=== PATIENT | male | born 1950 | race Caucasian/White ===

== ENCOUNTER → 2017-03-09 | Outpatient (CLI) | payer OTHER ==
[~2017-03-09] MED LIST: ASPI81TA28 PO; ATOR-26 PO; FLV1 PO; GEMF600T3 PO; LISI-461 PO; METO50TA16 PO; SILD100T PO; URX/10 PO
[2017-03-09 13:33] LABS: ESTIMATED AVERAGE GLUCOSE 134 mg/dl; HA1C FLAG Normal (Normal)
[2017-03-09 13:43] LABS: ALT/SGPT 24 U/L (12-78); BLOOD UREA NITROGEN 27 mg/dl (7-18); BUN/CREATININE RATIO 16.9 (10-20); CALCIUM 9.4 mg/dl (8.5-10.1); CARBON DIOXIDE 23 mmol/L (21-32); CHLORIDE 105 mmol/L (98-107); CHOLESTEROL 287 mg/dl (0-200); CREATININE 1.57 mg/dl (0.60-1.40); GLUCOSE 139 mg/dl (70-99); SODIUM 136 mmol/L (136-145); TRIGLYCERIDES 183 mg/dl (0-150); VERY LOW DENSITY LIPOPROT CALC 37 mg/dl
[2017-03-09 13:46] LABS: ALB/GLOB RATIO 1.2 (0.9-2); ALKALINE PHOSPHATASE 90 U/L (45-117); AST/SGOT 22 U/L (15-37); CHOLESTEROL/HDL RATIO 6.2; HDL CHOLESTEROL 46 mg/dl; LDL CHOLESTEROL CALCULATED 204 mg/dl
== END | disposition home or self-care (01) ==
LOC: C.LABPVFM 07:33
PROVIDERS: ATTEND Family Medicine
DX: Z11.59 Encounter for screening for other viral diseases (principal); I25.10 Atherosclerotic heart disease of native coronary artery without angina pectoris; E78.1 Pure hyperglyceridemia; R73.01 Impaired fasting glucose; I10 Essential (primary) hypertension

== ENCOUNTER → 2017-08-25 | Outpatient (CLI) | payer OTHER ==
[2017-08-25 13:50] LABS: ALBUMIN 4.4 gm/dl (3.4-5.0); ALT/SGPT 27 U/L (12-78); AST/SGOT 33 U/L (15-37); BLOOD UREA NITROGEN 30 mg/dl (7-18); CALCIUM 9.1 mg/dl (8.5-10.1); CARBON DIOXIDE 23 mmol/L (21-32); CHOLESTEROL 182 mg/dl (0-200); CREATININE 2.22 mg/dl (0.60-1.40); GLUCOSE 116 mg/dl (70-99); POTASSIUM 4.2 mmol/L (3.5-5.1); SODIUM 134 mmol/L (136-145)
[2017-08-25 13:53] LABS: ALKALINE PHOSPHATASE 113 U/L (45-117); LDL CHOLESTEROL CALCULATED 103 mg/dl; TOTAL PROTEIN 8.2 gm/dl (6.4-8.2)
== END | disposition home or self-care (01) ==
LOC: C.LABPVFM 07:30
PROVIDERS: ATTEND Family Medicine
DX: I25.10 Atherosclerotic heart disease of native coronary artery without angina pectoris (principal); K21.9 Gastro-esophageal reflux disease without esophagitis; R73.01 Impaired fasting glucose; E78.1 Pure hyperglyceridemia; N52.9 Male erectile dysfunction, unspecified; N18.3 Chronic kidney disease, stage 3 (moderate)

== ENCOUNTER → 2017-09-05 | Outpatient (CLI) | payer OTHER ==
--- NOTE | 2017-09-05 11:58 | DIAGNOSTIC IMAGING REPORT ---
(RENAL)RETROPERITON COMP CLINICAL HISTORY: 66 years-old Male presenting with STAGE III KIDNEY DIS. TECHNIQUE: Real-time grayscale and limited color Doppler ultrasound imaging of the kidneys and bladder was performed. COMPARISON: CT from 08/21/2009. FINDINGS: Right kidney: Normal echogenicity of renal parenchyma. Right kidney measures 10.3 cm. No hydronephrosis. No convincing evidence of calculus or mass. Left kidney: Normal echogenicity of renal parenchyma. Left kidney measures 12.7 cm. No hydronephrosis. No convincing evidence of calculus or mass. Bladder: Circumferential bladder wall thickening suggested. Bilateral ureteral jets present. Other: None. IMPRESSION: 1. Normal renal ultrasound. No obstruction. 2. Circumferential bladder wall thickening could suggest chronic bladder outlet obstruction or cystitis. Correlate with urinalysis Electronically signed by: Wilder Dominguez M.D. 09/05/2017 11:57 AM Dictated Date/Time: 09/05/2017 11:56 AM
== END | disposition home or self-care (01) ==
LOC: C.ULTR 10:57
PROVIDERS: ATTEND Family Medicine
DX: N18.3 Chronic kidney disease, stage 3 (moderate) (principal)

== ENCOUNTER 2022-07-18 06:48 | Inpatient (IN) ==
--- NOTE | 2022-06-17 16:16 | PAT Medication Instructions ---
Medication Instructions Date of Service June 17, 2022 Home Medications Medication Instructions Recorded blood sugar diagnostic (OneTouch #100 ea 08/20/19 Ultra Blue Test Strip) lisinopril 5 mg tablet 5 mg PO QAM #90 tabs 08/18/21 rosuvastatin 40 mg tablet 40 mg PO HS #90 tabs 02/15/22 aspirin 81 mg tablet,delayed release 81 mg PO QAM lancets (OneTouch UltraSoft Lancets) blood sugar diagnostic (OneTouch Ultra Blue Test Strip) lisinopril 5 mg tablet 5 mg PO QAM rosuvastatin 40 mg tablet 40 mg PO HS alfuzosin 10 mg tablet,extended release 24 hr 10 mg PO QAM ezetimibe 10 mg tablet (Zetia) 10 mg PO HS folic acid 1 mg tablet 1 mg PO QAM metformin 500 mg tablet 500 mg PO QAM metoprolol tartrate 50 mg tablet 50 - 100 mg PO UD omeprazole 20 mg capsule,delayed release 20 mg PO HS Continue as directed metoprolol tartrate 50 mg tablet 50 - 100 mg PO UD ASK your prescriber and surgeon aspirin 81 mg tablet,delayed release 81 mg PO QAM DO NOT take the morning of surgery lisinopril 5 mg tablet 5 mg PO QAM folic acid 1 mg tablet 1 mg PO QAM metformin 500 mg tablet 500 mg PO QAM Take morning of surgery With a small sip of water, OTHERWISE NOTHING TO EAT OR DRINK AFTER MIDNIGHT: alfuzosin 10 mg tablet,extended release 24 hr 10 mg PO QAM Take evening before surgery rosuvastatin 40 mg tablet 40 mg PO HS ezetimibe 10 mg tablet (Zetia) 10 mg PO HS omeprazole 20 mg capsule,delayed release 20 mg PO HS Other Notes If you have any questions please call us at [phone] or [phone] or [phone] or [phone]
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
[~2022-07-18 06:48] MED LIST changes: +ALLERGY Noted to ORDERED Medication SCH; -ASPI81TA28 PO; -ATOR-26 PO; -FLV1 PO; -GEMF600T3 PO; -LISI-461 PO; +LR 15ML/HR IV SCH; -METO50TA16 PO; -SILD100T PO; -URX/10 PO
[2022-07-18] MEDS ORDERED: BUPIVACAINE 0.5 % 5 MG/1 ML PF 10ML VIAL ONE (06:50)
[2022-07-18] MEDS ORDERED: LIDOCAINE 2% MPF LOCAL 5 ML VIAL INFIL ONE (07:01)
[2022-07-18] MEDS ORDERED: DEXAMETHASONE SOD INJ 4 MG/ML VIAL ONE (07:01)
[2022-07-18] MEDS ORDERED: PROPOFOL IV EMULSION 10 MG/ML 20 ML VIAL IV ONE (07:01)
[2022-07-18] MEDS ORDERED: fentaNYL citrate PF 100 MCG/2 ML VIAL ONE (07:01)
[2022-07-18] MEDS ORDERED: ONDANSETRON INJ 2 MG/ML 2 ML VIAL ONE (07:01)
[2022-07-18] MEDS ORDERED: ROCURONIUM BROMIDE 10 MG/ML 5 ML VIAL IV ONE (07:01)
[2022-07-18] MEDS ORDERED: MIDAZOLAM HCL 1 MG/ML 2ML VIAL ONE (07:02)
[2022-07-18] MEDS ORDERED: CLINDAMYCIN 600 MG/D5W 50 ML BAG IV ONE (07:25)
[2022-07-18] MEDS ORDERED: EPINEPHrine HCL INJ 1 MG/ML 30ML ONE (07:30)
--- NOTE | 2022-07-18 07:36 | History & Physical Bridge Note ---
Date of Service July 18, 2022 History & Physical Bridge Note I have examined the patient, reviewed the History & Physical and in the interval since the performance of the History & Physical I have noted the following changes of clinical significance: no changes noted
[2022-07-18] MEDS ORDERED: CLINDAMYCIN/D5W 900 MG/50 ML BAG IV ONE (08:45)
[2022-07-18 10:06] LABS: iSTAT Arterial Blood Gas HCO3 24 meg/L (19-24); iSTAT Arterial Blood Gas pCO2 69 mmHg (35-46); iSTAT Arterial Blood Gas pH 7.14 (7.35-7.45); iSTAT Arterial Blood Gas pO2 128 mmHg (80-95); iSTAT Carbon Dioxide 26 mmol/L (24-31); iSTAT Hematocrit 47 % (42-52); iSTAT Potassium 4.1 mmol/L (3.3-5.0); iSTAT Sodium 140 mmol/L (135-144)
--- NOTE | 2022-07-18 10:30 | Procedure Note ---
Procedure Note Date of Service July 18, 2022 Note Bedside Ultrasound: Lung: No pleural effusion bilaterally, minimal B-lines appreciated posteriorly, a lines anteriorly Heart: Distant ejection fraction, RVOT normal in size, mild pericardial effusion Abdomen: No ascites Lower extremities: No DVT appreciated in bilateral femoral and popliteal veins Please note the above document was generated using voice recognition software. It may contain grammatical, syntax or spelling errors.Any formal questions or concerns about the content, text or information contained within the body of this dictation should be directly addressed to the provider for clarification. Coding CPT Codes Pulmonary/Thoracic - Pulmonary and Thoracic: 13550 US, Chest, real time with imaging documentation ([id number]) [facility] Procedure Codes (Charges) Pulmonary/Thoracic Procedure 1: Pulmonary and Thoracic: 03321 US, Chest, real time with imaging docum entation
--- NOTE | 2022-07-18 11:03 | XRay Report ---
XR chest 1V portable HISTORY: 71 years-old Male s/p cardiac arrest acute cardiac arrest COMPARISON: Chest radiographs 06/22/2022 TECHNIQUE: AP view of the chest FINDINGS: Cardiac silhouette is enlarged. Prior median sternotomy. Trace pleural effusions. Mild interstitial c oarsening. Pulmonary vascular congestion. No pneumothorax. Mild bibasilar densities favoring atelecta sis. Degenerative changes of the shoulders and spine. IMPRESSION: 1. Cardiomegaly with suggestion of mild pulmonary edema. 2. Trace pleural effusions. ACT 112: Negative or not required by law. The above report was generated using voice recognition software. It may contain grammatical, syntax o r spelling errors. Electronically signed by: Yoan Magallon M.D. 07/18/2022 11:01 AM
[2022-07-18 11:04] LABS: Basophils # (auto) 0.04 K/uL (0-0.2); Basophils % (auto) 0.6 %; Eosinophils # (auto) 0.09 K/uL (0-0.50); Eosinophils % (auto) 1.3 %; Hematocrit (blood only) 43.4 % (42.0-52.0); Hemoglobin 15.8 g/dl (14.0-18.0); Immature Granulocytes # (auto) 0.05 K/uL (0.01-0.20); Immature Granulocytes % (auto) 0.7 %; Lymphocytes # (auto) 0.28 K/uL (1.2-3.4); Mean Corpuscular Hemoglobin 34.1 pg (25.0-34.0); Mean Corpuscular Hgb Conc 36.4 g/dL (32.0-36.0); Mean Corpuscular Volume 93.5 fL (80.0-100.0); Mean Platelet Volume 10.5 fL (9.4-12.4); Monocytes # (auto) 0.51 K/uL (0.11-0.59); Monocytes % (auto) 7.2 %; Neutrophils # (auto) 6.11 K/uL (1.40-6.50); Neutrophils % (auto) 86.2 %; Platelet Count 153 K/uL (130-400); RDW Coefficient of Variation 13.7 % (11.5-14.5); RDW Standard Deviation 46.1 fL (36.4-46.3); Red Blood Count 4.64 M/uL (4.70-6.10); White Blood Count 7.08 K/ul (4.8-10.8)
--- NOTE | 2022-07-18 11:10 | Critical Care Consultation ---
Date of Consultation July 18, 2022 Assessment & Plan (1) Cardiac arrest: (2) CAD (coronary atherosclerotic disease): (3) Dyslipidemia: Plan Reason Critically Ill: 71-year-old male with a significant history of coronary artery disease, ID status post CABG x3, peripheral arterial disease, carotid artery stenosis, amongst others who is status post asystolic arrest in the OR with successful ROSC with downtime of approximately 3 minutes. NEURO - * CAM ICU: NEGATIVE * s/p Cardiac arrest: * Patient was successfully extubated in the OR. * He is awake, alert, and oriented. * Down time ~3 min. * No neuro deficits on exam. * Will hold on brain imaging at this time. CARDIAC/VASCULAR - * Cardiac Arrest: * Unable to assess rhythm prior to arrest. * The rest does not appear to be temporally associated with administration of any specific medications. * Received 2 rounds of epinephrine and ROSC was achieved in approximately 3 minutes * Patient appears neurologically intact at this point. He was successfully extubated and following commands and having conversations. * Received a promotion 20% bolus in the event that toxicity from local anesthesia caused arrest. * Appreciate cardiology input. * Hypertension: * Hold on antihypertensive medications until evaluated by cardiology. * EKG: Post arrest EKG - NSR @ [address]/T-wave changes. QTc 435 ms. * Monitor on telemetry. RESPIRATORY - * Significant smoking history: * Carries diagnosis of COPD. I am unable to assess any prior PFTs or pulmonary evaluation otherwise. * Patient with diffuse wheezing throughout all lung tejada. * Will start the patient on Anoro Ellipta daily as well as albuterol inhalers. Patient has had complaints of dyspnea on exertion in the past. May benefit from formal pulmonary evaluation in the outpatient setting. * Chest x-ray obtained postextubation demonstrates atelectasis of the LEFT lower lung field. We will start the patient on pulmonary toilet including incentive spirometer and flutter valve. We will cover the patient empirically with doxycycline 100 mg twice daily for 5 days. * Patient is now on 2 L nasal cannula. Bedside echocardiogram performed by my attending and separate report. Formal ultrasound of the legs obtained. Low suspicion for PE, however we will explore this if findings of Doppler positive GI/NUTRITION - * Progress diet as tolerated. AHA/DM2 diet. * Prophylaxis: Continue omeprazole. RENAL/LYTES - * CKD 3: * Will recheck labs status post arrest. - * Strict I&Os. ENDO - * DMII * BSGs per unit protocol. ISS --> gtt per unit policy. HEME - * Stable H&H ID - * Question infiltrative change on CXR. * Will cover with Doxy PO BID x 5 days. * Cefepime allergy LINES/IV ACCESS - * PIVs x2 * LEFT radial Arterial line DVT PROPHYLAXIS - * Hold s/p aggressive resuscitation measures. * SCDs Thank you for allowing us to participate in the care of this patient. Please refer to my attending physician's documentation for any further recommendations. Supervising Physician Co-Signing Physician Notes I saw and evaluated the patient with Red Stauffer, and agree with findings and plan as documented in the note. 71-year-old male past medical history of coronary artery disease s/p CABG in 2009, peripheral artery disease, COPD was admitted to the ICU status postcardiac arrest in the OR Patient had gotten induction propofol, fentanyl and he got lidocaine block for the shoulder surgery prior to the arrest. He was down for approximately 4 minutes with ROSC following that He did get lipid emulsion in the OR Patient was awake alert oriented and he was extubated successfully. At the time of my examination in the ICU patient had arterial line in with systolic blood pressure in the 130s. The only complaint that the patient had was that he was not able to move his left arm and that it was severely numb. He denied any chest pain, no shortness of breath Denied any headache, no blurry vision Asking whether he had similar episodes prior to any sedation procedures, he said no. Constitutional: No acute distress HEENT: EOMI, PERRLA Respiratory system: Decreased air entry bilateral lower lobes, more decreased on the left side, mild crackles bilaterally, no wheeze, no rhonchi CVS: S1-S2 positive, no murmurs or gallops Abdomen: Soft, nontender, nondistended, positive bowel sounds x4 Extremities: +2 pulses bilaterally radialis/ dorsalis pedis, no cyanosis, no edema Neuro: Awake alert oriented x3 Psych: Normal mood and affect G/U: No Ochoa Plan: The likelihood of patient's cardiac event could be from lidocaine versus cardiac etiology Stat 2D echo, CBC and EKG has been ordered. EKG showed normal sinus rhythm, no ST-T wave changes appreciated, QTc 435 Chest x-ray shows atelectasis of the left lower lobe. Will give doxycycline given the allergy to cefepime. Incentive spirometry and flutter valve For COPD we will start the patient on Anoro to be used on a daily basis. Patient does have elevated bilirubin, he is a heavy alcohol drinker. Shock can also cause elevated bilirubin. Unfortunately AST and ALT was not able to be obtained given lipid emulsion. We will repeat BMP later today Bedside echo showed normal RVOT. Mildly decreased EF. No pleural effusion. No proximal DVT in the lower extremities Unlikely for patient to have PE as his saturation was 98% on 2 L and no DVT on ultrasound. Continue to monitor on the patient. Cardiology consultation made I have personally spent 55 minutes of critical care time in the direct management of this patient. This is a life/limb threatening event. This includes time spent evaluating patient, direct bedside care, chart review, placing orders, interpretation of diagnostic studies, discussion with consultants, patient, and family members, as well as other required patient management activities. This time is exclusive of all separately billable procedures, and teaching time and separate from and in addition to any other critical care service time. Please note the above document was generated using voice recognition software. It may contain grammatical, syntax or spelling errors. History of Present Illness Reason for Consultation: Cardiac Arrest Requesting Physician: Dr. Moore Attending Physician: Kamron Moore MD History of Present Illness Patient is a 71-year-old male with a significant past medical history of coronary artery disease status post CABG x3 in 2009, hypertension, hyperlipi demia, tobacco dependence with greater than [id number] history of smoking, type 2 diabetes, CKD 3, and presumed COPD. Patient has been medically managing a full-thickness LEFT-sided rotator cuff tear. He was scheduled for LEFT-sided shoulder arthroscopy with rotator cuff repair, Sub acromial decompression, and distal clavicle excision to be performed in the operating room today. Patient had successfully underwent regional block of the LEFT upper extremity. He received general anesthesia in the form of propofol and succinylcholine. He did well and was successfully intubated without issue. Unfortunately, as the patient was positioned for arthroscopic access, he to a systolic rhythm. CPR was started at 0927 and completed at 09 2:30 pushes of epinephrine and higher quality CPR. The patient also received a bolus of 120 mL of lipid avulsion for the possibility of local anesthetic toxicity. Patient was awoken in the OR and was successfully extubated to nonrebreather mask. Upon evaluation in the ICU, the patient is awake and alert. He is still groggy from sedation, but does participate in HPI. He states that he had arrested during a prior cardiac surgery, but had not experienced similar rests otherwise. He reports some mild complaints of pain to his chest. He offers no other complaints at this time. Allergies Allergy/AdvReac Type Severity Reaction Status Date / Time cefepime Allergy Unknown RASH Verified 07/18/22 07:14 Home Medications Medication Instructions Recorded Confirmed Type aspirin 81 mg tablet,delayed 81 mg PO QAM 02/26/18 07/18/22 History release lancets (OneTouch UltraSoft #50 ea 12/10/18 02/15/22 History Lancets) blood sugar diagnostic (OneTouch #100 ea 08/20/19 02/15/22 Rx Ultra Blue Test Strip) lisinopril 5 mg tablet 5 mg PO QAM #90 tabs 08/18/21 07/18/22 Rx rosuvastatin 40 mg tablet 40 mg PO HS #90 tabs 02/15/22 07/18/22 Rx alfuzosin 10 mg tablet,extended 10 mg PO QAM 06/17/22 07/18/22 History release 24 hr ezetimibe 10 mg tablet (Zetia) 10 mg PO HS 06/17/22 07/18/22 History folic acid 1 mg tablet 1 mg PO QAM 06/17/22 07/18/22 History metformin 500 mg tablet 500 mg PO QAM 06/17/22 07/18/22 History metoprolol tartrate 50 mg tablet 50 - 100 mg PO UD 06/17/22 07/18/22 History omeprazole 20 mg capsule,delayed 20 mg PO HS 06/17/22 07/18/22 History release Patient History Medical History AAA (abdominal aortic aneurysm) 3.1cm AAA per 12/23/20 aortic duplex Arrhythmia Hx palpitations in association with sensed ectopy per [facility] cardio records CAD (coronary artery disease) CABG x3 (2009) Carotid artery disease S/P right carotid endarterectomy (2014) Chronic kidney disease, stage III (moderate) Chronic obstructive pulmonary disease Breathing stable Diabetes mellitus, type 2 NIDDM Glucose stable per patient GERD (gastroesophageal reflux disease) Well controlled and stable Hearing deficit No hearing aids History of basal cell carcinoma S/p removal Hypertension Myocardial Infarction 2010 Obesity Osteoarthritis Poor historian Pulmonary embolism 2010 - [facility] - [facility]RE[facility] Short-term memory loss 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 per patient due to combativeness in 2009 Surgical History History of appendectomy History of back surgery History of cardiac cath 2010 > CABG History of carotid endarterectomy Right (2014) History of cataract surgery R/L History of cholecystectomy History of colonoscopy + polypectomy History of coronary artery bypass graft CABG x3 (2009) History of esophagogastroduodenoscopy (EGD) History of tooth extraction Hx of basal cell carcinoma excision Family History Mother Family history of diabetes mellitus Denies family history of Ovarian cancer Prostate cancer Myocardial infarction Breast cancer Colorectal cancer Social History Smoking Status: Never smoker Tobacco Type: Cigarettes Age Started Using Tobacco: 19; Age Quit Using Tobacco: 69; Cigarettes Per Day: 40 cigs/day; Smoking End Date: 3 years ago; Second Hand Exposure: Yes; Do You Dip or Chew Tobacco: Yes (1 pack/day- advised); Tobacco Cessation Education Requested by Patient: No Hx Alcohol Use: Yes Alcohol type: beer Alcohol Intake Frequency: 4 or More x per/Week Hx Substance Use: Yes Non-Prescribed Medications: Marijuana Last Used Substance: Unknown Last Used Substance Other:: March Preferred Language: [place]al[place] Communication Ability: Effective Senior Cobol Developer Required: No Beliefs That Will Affect Care: None marital status: Current Living Situation: Spouse current occupational status: retired How many Children do You have: 2 Other Information That Helps Us Care for You: No Feels Safe at Home: Yes Safety Concerns: Feels Safe At This Time Childhood Exposure to Second-Hand Smoke: Yes caffeine: No Dental Care, Regularly: No Physical Activity Frequency: Does not Exercise Seatbelt Use: never Sunscreen Use: No Assistive Devices: None Review of Systems Review of Systems: A complete 10 point review of systems was reviewed with the patient with pertinent positives and negatives as per history of present illness. All else were negative. Physical Exam Physical Exam: VITAL SIGNS - Vital signs and nursing notes were reviewed. GENERAL - 71-year-old male appearing his stated age who is in no acute distress. Communicates well with provider and answers questions appropriately. HEAD - NC/AT. EYES - PERRL with EOMI bilaterally. Sclera anicteric. NOSE - Midline and without cyanosis. No epistaxis or purulent drainage noted. MOUTH/OROPHARYNX - Without perioral cyanosis. NECK - Neck with FROM. Supple to palpation. LUNGS -normal air entry appreciated. Diffuse inspiratory wheezes noted on exam. CARDIAC - RRR with S1/S2. No murmur, rubs, or gallops appreciated. Mild reproducible tenderness to palpation appreciated over the anterior chest wall. ABDOMEN - Abdominal contour obese without pulsations or visible masses. BS normoactive all four quadrants. No tenderness, palpable masses, hepatosplenomegaly, or ascites noted. EXTREMITIES - No clubbing or peripheral cyanosis. Trace pretibial edema present. +3/5 radial and dorsalis pedis pulses palpated throughout. +5/5 strength noted in UE/LE bilaterally. Decreased sensation and ROM of the LUE 2/2 regional block. NEUROLOGIC - Cranial nerves II through XII grossly intact. PSYCH - A&Ox3 and cooperates fully with examiner. Pt is very pleasant and interacts well with examiner. Results & Data Results & Data Vital Signs (Past 12 Hours) Vital Signs Temp Pulse Resp BP BP Pulse Ox O2 Del Method 07/18/22 10:00 36.6 C 85 24 166/92 H 137/96 96 Nasal Cannula 07/18/22 07:32 36.4 C L 70 20 148/82 H 96 Room Air 07/18/22 07:32 Room Air O2 Flow Rate 07/18/22 10:00 2 07/18/22 07:32 07/18/22 07:32 Laboratory Results 07/18/22 10:50 07/18/22 13:49 Coding Level of Care Code 50978 CRITICAL CARE 1ST 30-74M Diagnoses Cardiac arrest I46.9 CAD (coronary atherosclerotic disease) I25.10 Dyslipidemia E78.5 Time Spent (min) 55
--- NOTE | 2022-07-18 11:26 | Cardiology Consultation ---
Date of Consultation July 18, 2022 Assessment & Plan (1) Cardiac arrest: Patient is a 71-year-old male with underlying known ischemic cardiomyopathy but with preserved LV systolic function who suffered transient loss of pulse during initial induction phase prior to planned shoulder surgery. Review of telemetry demonstrates monitor recording asystole but with low voltage rhythm present. No true asystole or loss of rhythm Suspect a vagal component to induction and nerve block. Transient drop in blood pressure and pulse requiring transient CPR and epinephrine with recovery. No current complaints of chest pain or angina other than that chest wall areas of CPR. Recommendations: Continue to trend troponin, serial EKGs Echocardiogram given CPR administered, chest x-ray demonstrates small left pleural effusion increased interstitial marking Currently hemodynamically stable would continue prehospital medications with reduced dose of metoprolol 50 twice per day Follow closely for alcohol withdrawal complaints (2) CAD (coronary atherosclerotic disease): History of Present Illness Reason for Consultation: Arrhythmic instability in OR Requesting Physician: Dr. Moore Attending Physician: Kamron Moore MD History of Present Illness Patient is a 71-year-old male with problem list per outpatient records 1. Atherosclerotic coronary disease, non-ST segment elevation myocardial infa rction in May 2009 leading to coronary bypass grafting for multi-vessel disease. Patient received a CHAPARRO graft to the LAD, saphenous vein graft to the obtuse marginal, and saphenous vein graft to the posterior descending arteryby Dr. Houston on June 02, 2009. 1. Post coronary bypass grafting operative course complicated by atrial fibrillation, respiratory failure, extended ventilator stay, transient encephalopathy, post-operative pulmonary embolus, anemia, and a drug rash secondary to cefepime. 2. Carotid artery disease. Status post right carotid endarterectomy in 2014. 3. Palpitations previously in association with sensed ectopy 4. Mild mitral regurgitation 5. Diastolic dysfunction 6. Chart history of type II diabetes mellitus 7. Stage III chronic kidney disease 8. Hypertension 9. Low HDL dyslipidemia 10. GERD 11. Chronic alcohol dependence Patient is referred after presenting this morning for planned elective shoulder arthroscopic surgery. In the operating room patient received initial induction and nerve block was repositioned and then noted on telemetry to have a drop in voltage/asystole on rhythm monitor strip. No palpable pulses felt and patient received transient CPR as well as IV epinephrine with spontaneous recovery of pressure and palpable pulse. Surgery was canceled and patient transferred to the intensive care unit Patient currently in the intensive care unit comfortable other than mild chest discomfort at sites of CPR. Eating lunch without difficulty. No recent clinical changes. No recent angina or congestive heart failure. No history of arrhythmias. Does admit to significant alcohol use Left arm was still with nerve block Allergies Allergy/AdvReac Type Severity Reaction Status Date / Time cefepime Allergy Unknown RASH Verified 07/18/22 07:14 Home Medications Medication Instructions Recorded Confirmed Type aspirin 81 mg tablet,delayed 81 mg PO QAM 02/26/18 07/18/22 History release lancets (OneTouch UltraSoft #50 ea 12/10/18 02/15/22 History Lancets) blood sugar diagnostic (OneTouch #100 ea 08/20/19 02/15/22 Rx Ultra Blue Test Strip) lisinopril 5 mg tablet 5 mg PO QAM #90 tabs 08/18/21 07/18/22 Rx rosuvastatin 40 mg tablet 40 mg PO HS #90 tabs 02/15/22 07/18/22 Rx alfuzosin 10 mg tablet,extended 10 mg PO QAM 06/17/22 07/18/22 History release 24 hr ezetimibe 10 mg tablet (Zetia) 10 mg PO HS 06/17/22 07/18/22 History folic acid 1 mg tablet 1 mg PO QAM 06/17/22 07/18/22 History metformin 500 mg tablet 500 mg PO QAM 06/17/22 07/18/22 History metoprolol tartrate 50 mg tablet 50 - 100 mg PO UD 06/17/22 07/18/22 History omeprazole 20 mg capsule,delayed 20 mg PO HS 06/17/22 07/18/22 History release Patient History Medical History AAA (abdominal aortic aneurysm) 3.1cm AAA per 12/23/20 aortic duplex Arrhythmia Hx palpitations in association with sensed ectopy per [facility] cardio records CAD (coronary artery disease) CABG x3 (2009) Carotid artery disease S/P right carotid endarterectomy (2014) Chronic kidney disease, stage III (moderate) Chronic obstructive pulmonary disease Breathing stable Diabetes mellitus, type 2 NIDDM Glucose stable per patient GERD (gastroesophageal reflux disease) Well controlled and stable Hearing deficit No hearing aids History of basal cell carcinoma S/p removal Hypertension Myocardial Infarction 2009 Obesity Osteoarthritis Poor historian Pulmonary embolism 2009 - [facility] - [facility] Short-term memory loss 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 per patient due to combativeness in 2009 Surgical History History of appendectomy History of back surgery History of cardiac cath 2010 > CABG History of carotid endarterectomy Right (2014) History of cataract surgery R/L History of cholecystectomy History of colonoscopy + polypectomy History of coronary artery bypass graft CABG x3 (2009) History of esophagogastroduodenoscopy (EGD) History of tooth extraction Hx of basal cell carcinoma excision Family History Mother Family history of diabetes mellitus Denies family history of Ovarian cancer Prostate cancer Myocardial infarction Breast cancer Colorectal cancer Social History Smoking Status: Never smoker Tobacco Type: Cigarettes Age Started Using Tobacco: 19; Age Quit Using Tobacco: 69; Cigarettes Per Day: 40 cigs/day; Smoking End Date: 3 years ago; Second Hand Exposure: Yes; Do You Dip or Chew Tobacco: Yes (1 pack/day- advised); Tobacco Cessation Education Requested by Patient: No Hx Alcohol Use: Yes Alcohol type: beer Alcohol Intake Frequency: 4 or More x per/Week Hx Substance Use: Yes Non-Prescribed Medications: Marijuana Last Used Substance: Unknown Last Used Substance Other:: March Preferred Language: Spanish Communication Ability: Effective Health Care Marketing Specialist Required: No Beliefs That Will Affect Care: None marital status: Current Living Situation: Spouse current occupational status: retired How many Children do You have: 2 Other Information That Helps Us Care for You: No Feels Safe at Home: Yes Safety Concerns: Feels Safe At This Time Childhood Exposure to Second-Hand Smoke: Yes caffeine: No Dental Care, Regularly: No Physical Activity Frequency: Does not Exercise Seatbelt Use: never Sunscreen Use: No Assistive Devices: None Review of Systems Review of Systems: All systems reviewed & are unremarkable except as noted in HPI & below Physical Exam Constitutional: + obese; no acute distress Eyes: PERRL, conjunctivae normal, anicteric sclerae ENMT: external ear and nose normal, oropharynx normal Neck: trachea midline, no thyromegaly Respiratory: Auscultation: + diminished lung sounds Cardiovascular: Rate/Rhythm: regular rate and regular rhythm Heart Sounds: normal S1 and normal S2; no murmur Vessels: no JVD Extremities: no edema Chest (Breasts): Additional Comments: Tender chest wall and parasternal Gastrointestinal (Abdomen): normal bowel sounds, soft, nontender, no hepatosplenomegaly Results & Data Vital Signs (Past 12 Hours) Vital Signs Temp Pulse Pulse Resp BP BP BP 07/18/22 10:00 07/18/22 11:10 119/82 07/18/22 11:10 71 26 H 07/18/22 11:05 125/80 07/18/22 11:05 71 25 H 07/18/22 11:01 72 25 H 07/18/22 11:00 133/83 07/18/22 10:59 73 25 H 07/18/22 10:55 129/87 07/18/22 10:55 73 26 H 07/18/22 10:46 75 20 07/18/22 10:46 123/74 07/18/22 10:35 77 24 07/18/22 10:35 115/79 07/18/22 10:26 78 28 H 07/18/22 10:26 118/83 07/18/22 10:20 132/95 07/18/22 10:20 81 32 H 07/18/22 10:11 82 32 H 07/18/22 10:11 117/88 07/18/22 10:03 85 31 H 07/18/22 10:00 36.6 C 85 24 166/92 H 137/96 07/18/22 07:32 36.4 C L 70 20 148/82 H 07/18/22 07:32 Pulse Ox O2 Del Method O2 Flow Rate 07/18/22 10:00 Nasal Cannula 2 07/18/22 11:10 07/18/22 11:10 95 07/18/22 11:05 07/18/22 11:05 07/18/22 11:01 97 07/18/22 11:00 07/18/22 10:59 97 07/18/22 10:55 07/18/22 10:55 96 07/18/22 10:46 96 07/18/22 10:46 07/18/22 10:35 94 07/18/22 10:35 07/18/22 10:26 95 07/18/22 10:26 03/20/23 10:20 07/18/22 10:20 93 07/18/22 10:11 99 07/18/22 10:11 07/18/22 10:03 96 07/18/22 10:00 96 Nasal Cannula 2 07/18/22 07:32 96 Room Air 07/18/22 07:32 Room Air Laboratory Results Laboratory Results - last 24 hr 07/18/22 07/18/22 07/18/22 07:14 08:37 10:50 WBC 7.08 RBC 4.64 L Hgb 15.8 POC Hgb 16.0 Hct 43.4 POC Hct 47 MCV 93.5 MCH 34.1 H MCHC 36.4 H RDW Std Deviation 46.1 RDW Coeff of Maribel 13.7 Plt Count 153 MPV 10.5 Immature Gran % (Auto) 0.7 Neut % (Auto) 86.2 Lymph % (Auto) 4.0 [place] % (Auto) 7.2 Eos % (Auto) 1.3 Baso % (Auto) 0.6 Neut # (Auto) 6.11 Lymph # (Auto) 0.28 L [place] # (Auto) 0.51 Eos # (Auto) 0.09 Baso # (Auto) 0.04 Immature Gran # (Auto) 0.05 POC pH 7.14 L* POC pCO2 69 H POC pO2 128 H POC HCO3 24 POC Total CO2 26 POC Base Excess -5.0 POC ABG O2 Sat 98.0 H POC Sodium 140 Sodium POC Potassium 4.1 Potassium Chloride Carbon Dioxide Anion Gap BUN Creatinine Est Cr Clr Drug Dosing Est GFR ( Amer) Est GFR (Non-Af Amer) BUN/Creatinine Ratio Glucose POC Glucose 177 H Calcium Phosphorus Magnesium Total Bilirubin AST ALT Alkaline Phosphatase Troponin I High Sens Total Protein Albumin Globulin Albumin/Globulin Ratio Nasal Screen MRSA (PCR) 07/18/22 07/18/22 07/18/22 10:50 10:55 11:27 WBC RBC Hgb POC Hgb Hct POC Hct MCV MCH MCHC RDW Std Deviation RDW Coeff of Maribel Plt Count MPV Immature Gran % (Auto) Neut % (Auto) Lymph % (Auto) [place] % (Auto) Eos % (Auto) Baso % (Auto) Neut # (Auto) Lymph # (Auto) [place] # (Auto) Eos # (Auto) Baso # (Auto) Immature Gran # (Auto) POC pH POC pCO2 POC pO2 POC HCO3 POC Total CO2 POC Base Excess POC ABG O2 Sat POC Sodium Sodium 136 POC Potassium Potassium TNP Chloride 106 Carbon Dioxide 20 L Anion Gap 10 BUN 20 Creatinine 1.25 Est Cr Clr Drug Dosing 68.1 Est GFR ( Amer) 67.2 Est GFR (Non-Af Amer) 58.0 BUN/Creatinine Ratio 16.0 Glucose 179 H POC Glucose 154 H Calcium 8.8 Phosphorus 4.0 Magnesium TNP Total Bilirubin 1.4 H AST TNP ALT TNP Alkaline Phosphatase 69 Troponin I High Sens 35.7 H Total Protein 6.3 Albumin 4.2 Globulin 2.1 L Albumin/Globulin Ratio 2.0 Nasal Screen MRSA (PCR) Negative
[2022-07-18] MEDS: ICU Protocol for HYPERglycemia SCH ×3 (11:31→19:52)
--- NOTE | 2022-07-18 11:31 | Communication Note ---
Date of Service: July 18, 2022 Patient presented for left shoulder arthroscopy. Chart was reviewed ,Pt. seen and examined;informed consent obtained for left interscalene nerve block and g eneral endotracheal anesthesia.Pt. Hx is sig. for CAD,s/p [place] w/CABG x 3in 2009;also w/ PVD as manifested by AAA,carotid artery stenosis, s/p CEA (2014); right subclavian artery stenosis(>70%);COPD w/ long Hx/ocigarette smoking,ongoing marijuana smoking,HLD,NIDDM,and CKD. Left interscalene nerve block was performed using ultrasound guidance w/ nerve stimulation w/injection incrementally of 0.5% bupivacaine (15ml) + 10 ml exparrell, w/o incident. Pt was brought Dianna @ 0912,positioned , padded , w/ monitors applied and VS's taken. A smooth GETA induction was accomplished @ 0920. At 0926 Pt became asystolic while positioning and code was called,CPR was started. @ 0927 1 mg epi was given. @ 0930 1 mg epi iv,w/ROSC. @ 0942, Lipid emulsion 20% bolus (120 ML) was administered IV for possible local anesthetic toxicity.@ 0946 a left radial 20 G in. art. line was inserted w/o incident w/ ABG drawn.Pt was spont. ventilating and responding appropriately to commands and was extubated @ approx. 0950 ,a NRB mask was applied; monitors were on and pt. was transported to ICU.Report was given to ICU PA. Dr Moore and I spoke in detail w/ Pt's .
--- NOTE | 2022-07-18 11:35 | Ultrasound Report ---
BILATERAL LOWER EXTREMITY VENOUS DOPPLER HISTORY: Acute pain and swelling of the lower legs r/o DVT COMPARISON STUDY: 01/08/2010 FINDINGS: There is normal compressibility, flow, and augmentation within the bilateral lower extremit y deep venous systems. IMPRESSION: No DVT within the right or left lower extremity. ACT 112: Negative or not required by law. Electronically signed by: Yoan Magallon M.D. 07/18/2022 11:33 AM
[2022-07-18] MEDS ORDERED: ALBUTEROL HFA 8 GM INHALER INH PRN (11:37)
[2022-07-18] MEDS ORDERED: FAT EMULSION IV 20% 500 ML IV ONE (11:38)
[2022-07-18 11:41] LABS: Albumin Level 4.2 gm/dl (3.4-5.0); Alkaline Phosphatase 69 U/L (34-104); Anion Gap 10 (3-11); Bilirubin,Total 1.4 mg/dl (0.2-1.0); Blood Urea Nitrogen 20 mg/dl (6-23); Calcium 8.8 mg/dl (8.5-10.1); Carbon Dioxide 20 mmol/L (21-32); Chloride 106 mmol/L (98-107); Creatinine Clr Calc Pharmacy 68.1 ml/min; Est GFR (African American) 67.2 ml/min; Globulin 2.1 gm/dl (2.5-4.0); Glucose 179 mg/dl (70-99(Fasting)); Sodium 136 mmol/L (136-145); Total Protein 6.3 gm/dl (6.0-8.3); Troponin I High Sensitivity 35.7 pg/ml (0-20)
[2022-07-18] MEDS: UMECLIDINIUM/VILANTEROL 62.5/25MCG 7 PUFFS/INHALER INH SCH (12:38)
[2022-07-18] MEDS: DOXYCYCLINE HYCLATE 100 MG in DEXTROSE 5% 100 ML IV SCH (14:23)
[2022-07-18 14:47] LABS: Magnesium 1.7 mg/dl (1.7-2.4); Potassium 4.2 mmol/L (3.5-5.1)
--- NOTE | 2022-07-18 15:20 | Electrocardiogram Report ---
Test Reason : Blood Pressure : / mmHG Vent. Rate : 069 BPM Atrial Rate : 069 BPM P-R Int : 178 ms QRS Dur : 086 ms QT Int : 406 ms P-R-T Axes : 048 010 039 degrees QTc Int : 435 ms Normal sinus rhythm When compared with ECG of 10-JUN-2010 06:27, No significant change was found Confirmed by Pillo Page ([id number]) on 07/18/2022 3:20:44 PM Referred By: Kamron Moore Confirmed By:Zbigniew Page
[2022-07-18] MEDS: METOPROLOL TARTRATE 50 MG TAB PO SCH (16:43)
--- NOTE | 2022-07-18 17:19 | Orthopedic Progress Note ---
Date of Service July 18, 2022 Assessment & Plan (1) Full thickness rotator cuff tear: Plan: Surgery never performed due to cardiac event. Medical management and possible further outpatient procedures or work-up prior to considering scheduling surgery again. Discussed with him that most likely scenario would be having him go to a tertiary care center or have other potential procedures performed to not have this occur again and undergo a safe procedure. We will have to treat him nonsurgically for now. Provide sling for support as needed. Provide short-term pain medication as needed. Continued admission and further treatment per medical team Admission and Anticipated Discharge Date Admission Date: July 18, 2022 Subjective Some soreness from CPR and chest and his arms numb but awake alert and doing okay. Results & Data Vital Signs (Past 12 Hours) Vital Signs Temp Pulse Pulse Resp BP BP BP 07/18/22 17:00 78 21 148/96 H 07/18/22 16:00 37.2 C 07/18/22 16:00 72 21 142/90 H 07/18/22 14:00 74 27 H 134/82 07/18/22 13:00 73 26 H 134/87 07/18/22 12:00 71 26 H 136/95 07/18/22 10:00 07/18/22 11:10 119/82 07/18/22 11:10 71 26 H 07/18/22 11:05 125/80 07/18/22 11:05 71 25 H 07/18/22 11:01 72 25 H 07/18/22 11:00 133/83 07/18/22 10:59 73 25 H 07/18/22 10:55 129/87 07/18/22 10:55 73 26 H 07/18/22 10:46 75 20 07/18/22 10:46 123/74 07/18/22 10:35 77 24 07/18/22 10:35 115/79 07/18/22 10:26 78 28 H 07/18/22 10:26 118/83 07/18/22 10:20 132/95 07/18/22 10:20 81 32 H 07/18/22 10:11 82 32 H 07/18/22 10:11 117/88 07/18/22 10:03 85 31 H 07/18/22 10:00 36.6 C 85 24 166/92 H 137/96 07/18/22 07:32 36.4 C L 70 20 148/82 H 07/18/22 07:32 Pulse Ox O2 Del Method O2 Flow Rate 07/18/22 17:00 94 Room Air 07/18/22 16:00 07/18/22 16:00 95 Room Air 07/18/22 14:00 96 Room Air 07/18/22 13:00 94 Room Air 07/18/22 12:00 97 Nasal Cannula 2 07/18/22 10:00 Nasal Cannula 2 07/18/22 11:10 07/18/22 11:10 95 07/18/22 11:05 07/18/22 11:05 07/18/22 11:01 97 07/18/22 11:00 07/18/22 10:59 97 07/18/22 10:55 07/18/22 10:55 96 07/18/22 10:46 96 07/18/22 10:46 07/18/22 10:35 94 07/18/22 10:35 07/18/22 10:26 95 07/18/22 10:26 07/18/22 10:20 07/18/22 10:20 93 07/18/22 10:11 99 07/18/22 10:11 07/18/22 10:03 96 07/18/22 10:00 96 Nasal Cannula 2 07/18/22 07:32 96 Room Air 07/18/22 07:32 Room Air (1) Full thickness rotator cuff tear Rotator cuff tear trauma status: unspecified whether traumatic Laterality: left Qualified Code(s): M75.122 - Complete rotator cuff tear or rupture of left shoulder, not specified as traumatic
[2022-07-18 18:12] LABS: BUN Creatinine Ratio 12.9 (10-20); Calcium 9.4 mg/dl (8.5-10.1); Creatinine Clr Calc Pharmacy 57.9 ml/min; Est GFR (African American) 55.2 ml/min; Est GFR (Non-African American) 47.7 ml/min; Magnesium 1.7 mg/dl (1.7-2.4); Phosphorus 3.5 mg/dl (2.5-4.9)
[2022-07-18] MEDS: ASPIRIN 81 MG ECTAB PO SCH (18:43)
[2022-07-18] MEDS: lisinopril 5 MG TAB PO SCH (18:43)
[2022-07-18] MEDS: HEPARIN SOD 5,000 UNIT/0.5 ML VIAL SQ SCH (19:52)
[2022-07-18] MEDS ORDERED: EZETIMIBE 10 MG TABLET PO SCH (21:00)
[2022-07-18] MEDS ORDERED: PANTOprazole 40 MG TAB PO SCH (21:00)
[2022-07-18] MEDS ORDERED: ROSUVASTATIN CALCIUM 20 MG TAB PO SCH (21:00)
[2022-07-19] MEDS: MAGNESIUM SULFATE / D5W 1 GM/100 ML BAG IV SCH ×2 (00:17→01:39)
[2022-07-19] MEDS: DOXYCYCLINE HYCLATE 100 MG in DEXTROSE 5% 100 ML IV SCH (01:46)
[2022-07-19] MEDS: ICU Protocol for HYPERglycemia SCH (07:51)
[2022-07-19] MEDS: METOPROLOL TARTRATE 50 MG TAB PO SCH (07:52)
[2022-07-19] MEDS: ASPIRIN 81 MG ECTAB PO SCH (07:52)
[2022-07-19] MEDS: lisinopril 5 MG TAB PO SCH (07:52)
[2022-07-19] MEDS: HEPARIN SOD 5,000 UNIT/0.5 ML VIAL SQ SCH (07:52)
[2022-07-19] MEDS: UMECLIDINIUM/VILANTEROL 62.5/25MCG 7 PUFFS/INHALER INH SCH (07:53)
--- NOTE | 2022-07-19 09:53 | Critical Care Progress Note ---
Date of Service July 19, 2022 Assessment & Plan (1) Cardiac arrest: (2) CAD (coronary atherosclerotic disease): (3) Dyslipidemia: Plan Reason Critically Ill: 71-year-old male with a significant history of coronary artery disease, MS status post CABG x3, peripheral arterial disease, carotid artery stenosis, amongst others who is status post asystolic arrest in the OR with successful ROSC with downtime of approximately 3 minutes. NEURO - * CAM ICU: NEGATIVE * s/p Cardiac arrest * Patient was successfully extubated in the OR. * He is awake, alert, and oriented. * Down time ~3 min. * No neuro deficits on exam. * Remains stable, anticipate downgrade from ICU CARDIAC/VASCULAR - * Cardiac Arrest * Unable to assess rhythm prior to arrest. * The rest does not appear to be temporally associated with administration of any specific medications. * Received 2 rounds of epinephrine and ROSC was achieved in approximately 3 minutes * Patient appears neurologically intact at this point. * He was successfully extubated and following commands and having conversations. * Received a promotion 20% bolus in the event that toxicity from local anesthesia caused arrest. * Appreciate cardiology input, suspecting vagal component with induction of nerve block * Hypertension: * Stable to continue home medications with decreased dose of Metoprolol (per cardiology) * EKG: Post arrest EKG - NSR @ [address]/T-wave changes. QTc 435 ms. * Monitor on telemetry. RESPIRATORY - * Significant smoking history: * Carries diagnosis of COPD. No PFTs in found in chart. * Patient with diffuse wheezing throughout all lung tejada. * Will start the patient on Anoro Ellipta daily as well as albuterol inhalers. Patient has had complaints of dyspnea on exertion in the past. May benefit from formal pulmonary evaluation in the outpatient setting. * Chest x-ray obtained postextubation demonstrates atelectasis of the LEFT lower lung field. We will start the patient on pulmonary toilet including incentive spirometer and flutter valve. We will cover the patient empi rically with doxycycline 100 mg twice daily for 5 days. * Bibasilar crackles resolved. * Patient is now off NC and stable on Room air. GI/NUTRITION - * Progress diet as tolerated. AHA/DM2 diet. * Prophylaxis: Continue omeprazole. RENAL/LYTES - * CKD 3: C4 1.47 H/ GFR 47.7 L * CMP ortherwise unremarkable - * Strict I&Os. * 754 mL urine output, net positive 374 mL ENDO * DMII * BSGs per unit protocol. ISS --> gtt per unit policy. HEME - * Stable H&H * CBC unremarkable ID - * Question infiltrative change on CXR. * Will cover with Doxy PO BID x 5 days. * Cefepime allergy * Improvement of crackles on physical exam, oxygenating well on room air * Patient afebrile LINES/IV ACCESS - * PIVs x2 * LEFT radial Arterial line DVT PROPHYLAXIS - * Hold s/p aggressive resuscitation measures. * SCDs DISPO: Patient is stable for downgrade from ICU, discharge per Primary Team (surgery). Thank you for allowing us to participate in the care of this patient. Please refer to my attending physician's documentation for any further recommendations. Admission and Anticipated Discharge Date Admission Date: July 18, 2022 Supervising Physician Co-Signing Physician Notes Dr. Conley was the resident-physician during care of patient. I separately evaluated patient for umana portions of the history and the exam. I was present during the critical portion of medical decision making, and I discussed the case with the resident. I generally agree with the findings and plan except for any additions/exceptions noted. Patient seen and examined at bedside. No acute distress, no adverse events overnight Denies any abdominal pain, mild chest discomfort from the CPR. No difficulty breathing Denies any shortness of breath No nausea vomiting Fair appetite Is able to feel the left arm now. Denies any numbness anymore No headache, no blurry vision, no dizziness Constitutional: No acute distress HEENT: EOMI, PERRLA Respiratory system: Decreased air entry bilateral lower lobes, No wheeze, no rhonchi, mild crackles bilateral lower lobes CVS: S1-S2 positive, no murmurs or gallops Abdomen: Soft, nontender, nondistended, positive bowel sounds x4 Extremities: +2 pulses bilaterally radialis/ dorsalis pedis, no cyanosis, no edema Neuro: Awake alert oriented x3 Psych: Normal mood and affect G/U: No Ochoa --Prophylaxis VTE: Heparin GI: Pantoprazole Lines: Peripheral Diet: Cardiac Plan: In/out: +164, urine output 754 Labs are pending from today. 2D echo from today shows EF 55-60%, mild hypokinesis anterior septal and inferior septal archer, grade 2 diastolic dysfunction, moderate TR Complete the course of doxycycline for 5 days Would recommend Anoro to be used on a daily basis even at home Patient hemodynamically stable to be downgrade to medical floor Follow-up cardiology recommendations Please note the above document was generated using voice recognition software. It may contain grammatical, syntax or spelling errors.Any formal questions or concerns about the content, text or information contained within the body of this dictation should be directly addressed to the provider for clarification. Subjective Patient is a 71-year-old male with a significant past medical history of cor onary artery disease status post CABG x3 in 2009, hypertension, hyperlipidemia, tobacco dependence with greater than [id number] history of smoking, type 2 diabetes, CKD 3, and presumed COPD. Patient has been medically managing a full-thickness LEFT-sided rotator cuff tear. He was scheduled for LEFT-sided shoulder arthroscopy with rotator cuff repair, patient had successfully underwent regional block of the LEFT upper extremity. He received general anesthesia in the form of propofol and suc cinylcholine. He did well and was successfully intubated without issue. Unfortunately, as the patient was positioned for arthroscopic access, he went to a systolic rhythm. CPR was started at 0927 and completed epinephrine and high quality CPR. The patient also received a bolus of 120 mL of lipid avulsion for the possibility of local anesthetic toxicity. Patient was awoken in the OR and was successfully extubated to nonrebreather mask. Today, the patient notes that he is feeling well and wants to leave. He states 'there's nothing wrong with me'. Patient notes that he has some discomfort in the center of his chest after receiving chest compressions, but notes that it is not crushing in nature. He denies any dyspnea, abdominal pain, headaches, lightheadedness or bowel/bladder changes. Patient has no other concerns at this time other than being discharged today. Review of Systems Review of Systems: As per HPI Physical Exam Physical Exam: Gen: NAD, alert, interactive HEENT: Supple, no LAD, no thyromegaly, no JVD Resp:Non-labored, no wheezing/rhonchi/rales, CTAB (lower lobe crackles, resolved) CV:RRR, normal S1/S2, no M/R/G Abd: Soft, non-distended, no TTP, normoactive bowels, no masses Extr: 2+ dp bilaterally, no edema Skin: No rashes lesions or erythema Results & Data Results & Data Vital Signs (Past 12 Hours) Vital Signs Temp Pulse Resp BP Pulse Ox O2 Del Method 07/19/22 08:30 153/81 H 07/19/22 08:30 71 27 H 96 Room Air 07/19/22 08:00 72 22 96 Room Air 07/19/22 07:31 72 26 H 97 Room Air 07/19/22 07:31 162/109 H 07/19/22 07:00 64 30 H 95 Room Air 07/19/22 07:00 156/91 H 07/19/22 08:55 Room Air 07/19/22 08:00 71 07/19/22 01:45 71 32 H 96 07/19/22 01:30 71 22 98 07/19/22 01:30 149/93 H 07/19/22 01:15 70 23 96 07/19/22 01:00 72 22 96 07/19/22 01:00 155/95 H 07/19/22 00:45 36.7 C 67 18 97 07/19/22 00:30 71 20 95 07/19/22 00:30 145/91 H 07/19/22 00:15 71 22 96 07/19/22 00:01 74 15 96 07/19/22 00:01 162/98 H 07/19/22 00:00 76 19 95 07/18/22 23:45 89 23 93 07/18/22 23:30 68 27 H 94 07/18/22 23:15 68 27 H 96 07/18/22 23:00 71 24 95 07/19/22 00:09 73 07/18/22 22:45 72 30 H 96 07/18/22 22:30 77 32 H 96 07/18/22 22:15 70 20 97 07/18/22 22:00 71 25 H 94 Laboratory Results 07/18/22 10:50 07/18/22 17:37 Resident Activity Tracking Resident Involvement: Resident Care Provided Care Provided: Adult Hospital Medicine
--- NOTE | 2022-07-19 10:35 | Cardiology Progress Note ---
Date of Service July 19, 2022 Assessment & Plan (1) Cardiac arrest: (2) CAD (coronary atherosclerotic disease): (3) Pulseless electrical activity: (4) Vasovagal episode: Plan Patient is a 71-year-old male with underlying known ischemic cardiomyopathy but with preserved LV systolic function who suffered transient loss of pulse during initial induction phase prior to planned shoulder surgery. Review of telemetry demonstrated low voltage rhythm, suggesting pulseless electrical activity. Patient received CPR and epinephrine with quick recovery. Events were likely related to vasovagal reaction to nerve block. Echo revealed preserved LVEF with wall motion abnormality, similar to outpatient echo. No arrhythmias or events overnight. Continue metoprolol 50 twice per day BP remains elevated since events yesterday. ? Alcohol withdrawal. Continue lisinopril and could titrate as needed. Stable for discharge today. No further cardiac testing warranted. Will arrange cardio f/u upon discharge. Follows with Dr. Mckinney and Stefany Beck PA-C Admission and Anticipated Discharge Date Admission Date: July 18, 2022 Supervising Physician Co-Signing Physician Notes Patient seen and examined, chart, medications, telemetry reviewed. Assessment and plan as noted above. Patient during induction of planned surgery noted with pulseless electrical activity requiring transient CPR and IV epinephrine with quick recovery. EKG without evidence of myocardial injury or ischemia. Plan discharged home on usual medications urged tobacco and alcohol cessation Subjective Patient resting in bed comfortably. Asking to go home. Denies dizziness, lightheadedness, syncope, near syncope. No chest pain. Chronic but stable dyspnea. Review of Systems Review of Systems: All systems reviewed & are unremarkable except as noted in HPI & below Physical Exam Constitutional: + obese; no acute distress Eyes: PERRL, conjunctivae normal, anicteric sclerae ENMT: external ear and nose normal, oropharynx normal Neck: trachea midline, no thyromegaly Respiratory: Auscultation: + diminished lung sounds Cardiovascular: Rate/Rhythm: regular rate and regular rhythm Heart Sounds: normal S1 and normal S2; no murmur Vessels: no JVD Extremities: no edema Gastrointestinal (Abdomen): normal bowel sounds, soft, nontender, no hepatosplenomegaly Results & Data Vital Signs (Past 12 Hours) Vital Signs Temp Pulse Resp BP Pulse Ox O2 Del Method 07/19/22 10:00 70 14 07/19/22 09:43 145/125 H 07/19/22 09:43 68 27 H 07/19/22 09:00 74 24 96 Room Air 07/19/22 09:00 149/77 H 07/19/22 08:30 153/81 H 07/19/22 08:30 71 27 H 96 Room Air 07/19/22 08:00 72 22 96 Room Air 07/19/22 07:31 72 26 H 97 Room Air 07/19/22 07:31 162/109 H 07/19/22 07:00 64 30 H 95 Room Air 07/19/22 07:00 156/91 H 07/19/22 08:55 Room Air 07/19/22 08:00 71 07/19/22 01:45 71 32 H 96 07/19/22 01:30 71 22 98 07/19/22 01:30 149/93 H 07/19/22 01:15 70 23 96 07/19/22 01:00 72 22 96 07/19/22 01:00 155/95 H 07/19/22 00:45 36.7 C 67 18 97 07/19/22 00:30 71 20 95 07/19/22 00:30 145/91 H 07/19/22 00:15 71 22 96 07/19/22 00:01 74 15 96 07/19/22 00:01 162/98 H 07/19/22 00:00 76 19 95 07/18/22 23:45 89 23 93 07/18/22 23:30 68 27 H 94 07/18/22 23:15 68 27 H 96 07/18/22 23:00 71 24 95 07/19/22 00:09 73 07/18/22 22:45 72 30 H 96 Laboratory Results Cardiac Enzymes 07/18/22 07/18/22 07/18/22 Range/Units 10:50 13:49 22:33 AST TNP 51 H Troponin I High Sens 35.7 H 239.4 H* D (0-20) pg/ml 07/19/22 Range/Units 04:47 AST Troponin I High Sens 129.9 H* D (0-20) pg/ml CBC 07/18/22 Range/Units 10:50 WBC 7.08 (4.8-10.8) K/ul RBC 4.64 L (4.70-6.10) M/uL Hgb 15.8 (14.0-18.0) g/dl Hct 43.4 (42.0-52.0) % Plt Count 153 (130-400) K/uL Neut # (Auto) 6.11 (1.40-6.50) K/uL Lymph # (Auto) 0.28 L (1.2-3.4) K/uL [place] # (Auto) 0.51 (0.11-0.59) K/uL Eos # (Auto) 0.09 (0-0.50) K/uL Baso # (Auto) 0.04 (0-0.2) K/uL Comprehensive Metabolic Panel 07/18/22 07/18/22 07/18/22 Range/Units 10:50 13:49 17:37 Sodium 136 136 (136-145) mmol/L Potassium TNP 4.2 4.0 Chloride 106 104 (98-107) mmol/L Carbon Dioxide 20 L 21 (21-32) mmol/L BUN 20 19 (6-23) mg/dl Creatinine 1.25 1.47 H (0.6-1.4) mg/dl Glucose 179 H 136 H (70-99(Fasting)) mg/dl Calcium 8.8 9.4 (8.5-10.1) mg/dl AST TNP 51 H ALT TNP Alkaline Phosphatase 69 (34-104) U/L Total Protein 6.3 (6.0-8.3) gm/dl Albumin 4.2 (3.4-5.0) gm/dl Intake and Output 07/18/22 07/19/22 07/19/22 22:59 06:59 14:59 Intake Total 350 / 918.333 278.333 / 918.333 210 / 210 Output Total 202 / 754 2 / 754 0 / 0 Balance 148 / 164.333 276.333 / 164.333 210 / 210 Intake: IV 110 / 438.333 278.333 / 438.333 Doxycycline Hyclate 100 mg In 110 / 220 110 / 220 Dextrose 5% 100 ml @ 50 mls/hr IV Q12H [facility] Rx#:[id number] Magnesium Sulfate / D5w 1 gm In 168.333 / 168.333 100 ml @ 50 mls/hr IV Q2H [facility]DELM[facility]A Rx#:[id number] Oral 240 / 480 0 / 480 210 / 210 Output: Urine 200 / 750 0 / 750 0 / 0 # Bowel Movements 2 / 4 2 / 4 Other: # Unmeasured Voids 1 1 Weight 103.2 kg Weight Measurement Method Built in [facility] Diagnostic Findings Telemetry reviewed: NSR in the 80's, occ PVC's. Several runs of non sustained atrial tach, lasting 5 beats. echo 07/18/22: Normal LV chamber size with mild concentric LVH Normal LV systolic function, EF 55-60% Mild hypokinesis of the basal anteroseptal and inferoseptal archer, otherwise normal wall motion Grade II diastolic dysfunction Mild MR Moderate TR Medications Administered Current Inpatient Medications Albuterol (Albuterol Hfa 8 Gm Inhaler) 2 puffs INH Q6R PRN PRN Reason: Wheezing Stop: 08/17/22 11:36 Aspirin (Aspirin 81 Mg Ectab) 81 mg PO QAM [facility] Stop: 08/17/22 18:14 Last Admin: 07/19/22 07:52 Dose: 81 mg Ezetimibe (Ezetimibe 10 Mg Tablet) 10 mg PO HS [facility] Stop: 08/17/22 20:59 Last Admin: 07/18/22 19:51 Dose: 10 mg Heparin Sodium (Porcine) (Heparin Sod 5,000 Unit/0.5 Ml Vial) 5,000 units SQ Q12 [facility] Stop: 08/17/22 20:59 Last Admin: 07/19/22 07:52 Dose: 5,000 units Doxycycline Hyclate 100 mg/ (Dextrose) 110 mls @ 50 mls/hr IV Q12H [facility] Stop: 07/23/22 13:59 Last Infusion: 07/19/22 03:50 Dose: Infused Lisinopril (Lisinopril 5 Mg Tab) 5 mg PO QAM [facility] Stop: 08/17/22 17:59 Last Admin: 07/19/22 07:52 Dose: 5 mg Metoprolol Tartrate (Metoprolol Tartrate 50 Mg Tab) 50 mg PO BID [facility] Stop: 08/17/22 20:59 Last Admin: 07/19/22 07:52 Dose: 50 mg Miscellaneous (Icu Protocol For Hyperglycemia) 1 each N/A ACHS [facility] Stop: 07/20/22 11:29 Last Admin: 07/19/22 07:51 Dose: 1 each Pantoprazole Sodium (Pantoprazole 40 Mg Tab) 40 mg PO HS [facility] Stop: 08/17/22 20:59 Last Admin: 07/18/22 19:52 Dose: 40 mg Rosuvastatin Calcium (Rosuvastatin Calcium 20 Mg Tab) 40 mg PO [facility] Stop: 08/17/22 20:59 Last Admin: 07/18/22 19:51 Dose: 40 mg Umeclidinium/Vilanterol (Umeclidinium/Vilanterol 62.5/25mcg 7 Puffs/Inhaler) 1 puffs INH DAILY [facility] Stop: 08/17/22 11:59 Last Admin: 07/19/22 07:53 Dose: 1 puffs
--- NOTE | 2022-07-19 11:55 | Billing Data ---
Date of Service July 19, 2022 Coding Level of Care Code 50519 SUB INP/OBS CARE
--- NOTE | 2022-07-19 14:20 | Communication Note ---
Date of Service: July 19, 2022 I received word from nursing that patient was in the process of being cleared by cardiology and was going to be ready to be discharged. At the time I was involved in a case in the operating room. By the time I had gotten out of the operating room, was able to place discharge instructions for the patient. However upon going over to the unit to see the patient, nursing stated that he had left quite some time prior. Patient states that he already had a plan worked out and that he was going to leave. Patient then did leave with family. Cardiology did clear the patient for discharge. Dr. Moore had spoken to the patient's after surgery and discussed having him come back to the office to discuss further plans for possible operative repair of his rotator cuff possibly at a tertiary care facility.
--- NOTE | 2022-07-20 12:42 | Discharge Summary ---
Date of Service July 20, 2022 Admission HPI Per Admitting Provider 71-year-old male with past medical history significant for CAD status post bypass, history of MS, diabetes mellitus, hypertension, COPD, CKD who presents with left shoulder pain. Pain is interfering with his daily activities. He has failed conservative measures. Strength. He would like to proceed with surgical intervention. Patient denies headaches, sweats, fevers, chills, double vision, blurred vision, cough, sore throat, dysphagia, chest pain, sob, wheezing, n/v/d/c, numbness, tingling, fatigue, urinary symptoms, mood disorders. ROS positive for left shoulder pain and stiffness. Admission Exam Per Admitting Provider Physical Exam Constitutional: well developed and well nourished; no acute distress Eyes: PERRL, conjunctivae normal, anicteric sclerae ENMT: external ear and nose normal, oropharynx normal Neck: trachea midline, no thyromegaly Respiratory: normal respiratory effort, lungs clear to auscultation Cardiovascular: RRR, no murmur, no edema Musculoskeletal: Left shoulder: Tenderness anterolateral acromion and AC joint. He has positive impingement signs. Painful range of motion actively. Forward flexion 180 degrees, passively, 90 degrees actively. Abduction to 60 degrees actively and 150 degrees passively. External rotation to 45 degrees. Pain and weakness with strength testing. 3+/5 abduction, 5 -/5 external rotation, 5/5 internal rotation. Skin: no rashes, warm and dry Neurologic: patellar DTR's 2+ bilat, sensation intact Psychiatric: A+Ox3, euthymic affect Principal Diagnosis Rotator cuff tear left shoulder Discharge Data Allergies Allergy/AdvReac Type Severity Reaction Status Date / Time cefepime Allergy Unknown RASH Verified 07/18/22 07:14 Consultations 07/18/22 09:49 Consult Carriage Rider Stat 07/18/22 11:12 Consult Cardiology Routine Procedures Performed Operation Date: 07/18/22 09:35 Actual Procedures p Patient went into Cardiac Arrest(Left) - Kamron Moore MD Ordered Studies 07/18/22 05:00 US - OR guided needle placemen Routine 07/18/22 10:07 US point of care ultrasound Urgent 07/18/22 10:10 US venous doppler LE Urgent Hospital Course (1) Full thickness rotator cuff tear: Patient was brought into the hospital on 07/18/22 for a rotator cuff repair. Patient had undergone preoperative clearances and was cleared for surgery. Patient was brought back to the operating room where anesthesia placed the patient under general anesthesia after a nerve block was performed of the left upper extremity. Patient was put into position with surgery however quickly began to have bradycardia and became pulseless. Please see anesthesia note from Dr. Damon detailing the actions. The patient was resuscitated fairly quickly and the surgery was canceled. He was then taken to the surgical ICU and monitored overnight. Patient was seen by Dr. Michael Gilman shortly thereafter. Please see his consult dated 07/18/2022. Patient remained stable overnight and was seen by the cardiology service the following morning. He had no arrhythmias or events overnight. Instructions were placed and from cardiology and they were felt the patient was stable for discharge. No surgery was planned at this time. When I went to see the patient on 07/19/2022, the patient had already left to go home. Dr. Moore had spoken to the patient's with plans to have him follow-up in the office to discuss further plans for his left shoulder. If surgical intervention was going to be the continued plan, the patient would likely have to go to a tertiary facility per Dr. Moore. The patient did leave as noted on 07/19/2022 without a discharge order placed. Follow-up with Dr. Moore in the near future. Patient to follow-up with his primary care physician as well as cardiology as noted. Total Time Total Time Spent Total Time Spent (In Minutes): 10 Discharge Plan Discharge Items Patient Disposition: Home - Self-Care Reason For Visit: Left Shoulder Impingement, Osteoarthritis, Rotator Discharge Diagnosis: Left Shoulder Impingement Syndrome; Osteoarthritis; Rotator cuff tear Activity: Per Instructions section Non-emergency contact: Surgeon Call non-emergency contact if: your pain is not controlled Follow-up/Referrals: Erasto Mo DO [Primary Care Provider] - Yves Mckinney DO [Power Lineworker] - Kamron Moore MD [Surgeon] - (Follow up with Dr Moore to discuss further plans concerning your shoulder) Diet: Heart Healthy Addtl Attending Provider Instructions: Sling to left upper extremity for comfort. You can use left shoulder as able. Please contact Dr. Moore's office for a follow up visit to discuss further plans for your Left shoulder. Stand-Alone Forms: My [facility] [employer], Smoking Cessation Medications and DC Order Prescriptions: New oxycodone 5 mg tablet 5 mg PO Q6H MDD 6 tabs PRN (Reason: pain) Qty: 12 0RF Continued (DME) OneTouch Ultra Blue Test Strip Strip See Dose Instructions .ROUTE .MEDSUPPLY Qty: 100 5RF Rx Instructions: Test blood sugar 1-3 times daily lisinopril 5 mg tablet 5 mg PO QAM Qty: 90 3RF (DME) lancets [OneTouch UltraSoft Lancets] misc See Dose Instructions .ROUTE .MEDSUPPLY Qty: 50 Rx Instructions: As directed rosuvastatin 40 mg tablet 40 mg PO HS Qty: 90 3RF aspirin 81 mg Tablet,Delayed Release (Dr/Ec) 81 mg PO QAM metformin 500 mg tablet 500 mg PO QAM metoprolol tartrate 50 mg tablet 50 - 100 mg PO UD Rx Instructions: 50 mg PO; 100mg in AM. 50mg in PM omeprazole 20 mg capsule,delayed release(DR/EC) 20 mg PO HS folic acid 1 mg tablet 1 mg PO QAM Rx Instructions: TAKE 1 TABLET BY MOUTH ONCE DAILY. ezetimibe [Zetia] 10 mg tablet 10 mg PO HS alfuzosin 10 mg tablet extended release 24 hr 10 mg PO QAM Admission Data Admit Date/Time: 07/18/22 09:49 Attending Provider: Kamorn Moore Admit Provider: Kamron Moore Primary Care Provider: Erasto Mo Other Providers: Red Stauffer ; Michael Gilman ; Niko Fernández Other Interventions: Discharge Summary Assessment (RN) Last Done: 07/19/22 11:35
== END 2022-07-19 11:39 | disposition home or self-care (01) | DRG 557 ==
LOC: ASU 06:48 → 1E 09:49